=== PATIENT | male | born 1940 | race Caucasian/White ===

== ENCOUNTER 2016-03-14 23:27 | Emergency (ER) | payer MEDICARE, OTHER ==
[2016-03-15] MEDS ORDERED: SODIUM CHLORIDE 0.9% 100 ML IV ONE (01:23)
[2016-03-15] MEDS ORDERED: PIPER/TAZO 3.375 GM PYXIS ONE (01:23)
[2016-03-15] MEDS ORDERED: ONDANSETRON 4 MG VIAL ONE (02:00)
[2016-03-15] MEDS ORDERED: DILAUDID 1 MG/ML AMP ONE (02:00)
== END 2016-03-15 04:51 | disposition other institution (70) ==
LOC: ER 23:27
CPT/HCPCS: 36415 ×2; 73130; 80053 ×2; 85025 ×2; 85652 ×2; 96365 ×2; 96375 ×2; 99284; J1170; J2405